=== PATIENT | female | born 1975 | race Native Hawaiian/Other Pacific Islander ===

== ENCOUNTER 2017-06-16 17:16 | Emergency (ER) | payer OTHER ==
[~2017-06-16] VITALS: Ht 162.6 cm; Wt 62.6 kg
[~2017-06-16 17:16] MED LIST: LABETALOL100 MG OR
[2017-06-16 18:12] LABS: PLATELET COUNT 421 K/uL (152-353)
[2017-06-16 18:20] LABS: POTASSIUM 3.7 mmol/L (3.6-5.2); SODIUM 137 mmol/L (136-145)
[2017-06-16 19:30] VITALS: BP 134/89; TEMP 98.7
== END 2017-06-16 19:35 | disposition home or self-care (01) ==
LOC: ED 17:16
PROVIDERS: Internal Medicine
DX: J06.9 Acute upper respiratory infection, unspecified (principal); J40 Bronchitis, not specified as acute or chronic; B34.9 Viral infection, unspecified; R00.0 Tachycardia, unspecified
CPT/HCPCS: 36415; 80053; 83880; 84484; 85027; 93005; 94640; 94664; 94760; 99283; J1940; J2930; L1830

== ENCOUNTER 2019-03-31 09:24 | Outpatient (CLI) | payer BC | END 2019-03-31 19:30 | disposition home or self-care (01) | LOC: MAMMO 09:24 | DX: Z12.31 Encounter for screening mammogram for malignant neoplasm of breast (principal); I10 Essential (primary) hypertension ==

== ENCOUNTER 2019-06-20 21:34 | Emergency (ER) | payer BC ==
[~2019-06-20] VITALS: Ht 162.6 cm; Wt 69.4 kg
[2019-06-20 22:18] VITALS: BP 122/82; TEMP 97.8
== END 2019-06-20 22:18 | disposition home or self-care (01) ==
LOC: ED 21:34
DX: T78.40XA Allergy, unspecified, initial encounter (principal)
CPT/HCPCS: 36415; 96374; 96375; 96376; 99284; J1200; J2930

== ENCOUNTER 2020-04-04 09:33 | Outpatient (CLI) | payer BC | END 2020-04-04 22:27 | disposition home or self-care (01) | LOC: MAMMO 09:33 | DX: Z12.31 Encounter for screening mammogram for malignant neoplasm of breast (principal) ==

== ENCOUNTER 2020-08-24 09:11 | Outpatient (CLI) | payer BC | END 2020-08-24 19:51 | disposition home or self-care (01) | LOC: LABW 09:11 | PROVIDERS: ATTEND Nurse Practitioner Family | DX: R80.9 Proteinuria, unspecified (principal) | CPT/HCPCS: 84156 ==

== ENCOUNTER 2020-09-28 08:26 | Outpatient (CLI) | payer BC | END 2020-09-28 21:29 | disposition home or self-care (01) | LOC: RESP 08:26 | PROVIDERS: ATTEND Nurse Practitioner Family | DX: R31.29 Other microscopic hematuria (principal); R07.89 Other chest pain ==

== ENCOUNTER 2020-10-07 07:54 | Outpatient (CLI) | payer BC | END 2020-10-07 20:52 | disposition home or self-care (01) | LOC: CT 07:54 | PROVIDERS: ATTEND Nurse Practitioner Family | DX: N28.1 Cyst of kidney, acquired (principal) | CPT/HCPCS: 36415; 82565; 84520; Q9963 ==

== ENCOUNTER 2020-12-06 12:17 | Outpatient (CLI) | payer BC ==
[2020-12-18 09:07] LABS: PLATELET COUNT 362 K/uL (152-353)
== END 2020-12-06 14:00 | disposition home or self-care (01) ==
LOC: LABW 12:17
PROVIDERS: ATTEND Internal Medicine
DX: R80.1 Persistent proteinuria, unspecified (principal)
CPT/HCPCS: 36415; 80053; 81000; 82043; 82330; 82570; 83516; 83735; 83970; 84100; 84155; 84165; 84166; 85027; 85652; 86038; 86160; 86225; 86255

== ENCOUNTER 2021-01-06 11:44 | Outpatient (CLI) | payer BC ==
[2021-01-06 13:46] LABS: POTASSIUM 3.3 mmol/L (3.6-5.2)
[2021-01-06 14:12] LABS: PLATELET COUNT 347 K/uL (152-353)
== END 2021-01-06 19:08 | disposition home or self-care (01) ==
LOC: RAD 11:44 → LAB 11:44 → RAD 19:08
PROVIDERS: ATTEND Nurse Practitioner Family
DX: J20.9 Acute bronchitis, unspecified (principal); R10.13 Epigastric pain
CPT/HCPCS: 80053; 82150; 83690; 85027

== ENCOUNTER 2021-01-16 10:56 | Outpatient (CLI) | payer BC, OTHER | END 2021-01-16 22:41 | disposition home or self-care (01) | LOC: RAD 10:56 | PROVIDERS: ATTEND Nurse Practitioner Family | DX: U07.1 COVID-19 (principal) ==

== ENCOUNTER 2023-03-05 08:52 | Outpatient (CLI) | payer BC | END 2023-03-05 20:43 | disposition home or self-care (01) | LOC: RAD 08:52 | PROVIDERS: ATTEND Nurse Practitioner Family | DX: M25.522 Pain in left elbow (principal); M54.59 Other low back pain; M79.641 Pain in right hand; M79.642 Pain in left hand ==

== ENCOUNTER 2023-03-29 10:11 | Outpatient (CLI) | payer BC | END 2023-03-29 19:47 | disposition home or self-care (01) | LOC: MAMMO 10:11 | PROVIDERS: ATTEND Nurse Practitioner Family | DX: Z12.31 Encounter for screening mammogram for malignant neoplasm of breast (principal) ==